=== PATIENT | female | born 1985 | race Caucasian/White ===

== ENCOUNTER 2018-03-04 15:51 | Emergency (ER) | payer OTHER ==
[~2018-03-04] VITALS: Ht 175.3 cm; Wt 74.8 kg
[~2018-03-04 15:51] MED LIST: ACET325 PO; ALBU90I; ALBU90OI INH; AMOX500 PO; AZIT250 PO; Amoxicillin875 MG PO; BENZ100A PO; Bactrim Ds Tab1 EACH PO; CEPH500 PO; CIPR500 PO; CRUTCH4 USE; CYCL10 PO; DEPO INJ; FAMO20 PO; FLUO10 PO; HYDACE25S PR; HYDACE5; HYDACE5 PO; HYDACE5325 PO; IBUP200; IBUP200 PO; IBUPROFEN 800 MG; MULVITMINE PO; Macrobid 100 M100 MG PO; Monodox100 MG PO; NAPR220; NAPR375 PO; NAPR500 PO; NAPR500ERA; NAPR550 PO; Nix Lice Treatm59 ML TOP; OXYACE5T PO; PENVK250; PENVK250 PO; PREN-16 PO; PROM25 PO; RANI150 PO; RXHYDACE PO; RXHYDGUAS PO; RXOXYACE PO; SERT100 PO; SERT50; SPACE CHAMBER1 EACH MC; TRAZ50; Ultram50 MG PO; Veetids 500500 MG PO; ZOLM2.5; Zofran Odt4 MG SL; Zofran Odt8 MG SL; [UNRECOGNIZED DRUG - REMARK]; [UNRECOGNIZED DRUG - REMARK]; [UNRECOGNIZED DRUG - REMARK] PO
[2018-03-04] MEDS ORDERED: Norco 5-325 Ta1 EACH PO (17:49)
== END 2018-03-04 18:51 | disposition home or self-care (01) ==
LOC: ER 15:51
DX: T14.8XXA Other injury of unspecified body region, initial encounter (principal); F41.8 Other specified anxiety disorders; F17.200 Nicotine dependence, unspecified, uncomplicated; Y04.2XXA Assault by strike against or bumped into by another person, initial encounter
CPT/HCPCS: 99283

== ENCOUNTER 2018-08-01 15:12 | Emergency (ER) | payer OTHER ==
[~2018-08-01] VITALS: Ht 175.3 cm; Wt 77.1 kg
[~2018-08-01 15:12] MED LIST changes: +Norco 5-325 Ta1 EACH PO
[2018-08-01] MEDS ORDERED: Norco 5-325 Ta1 EACH PO (16:32)
[2018-08-02] MEDS ORDERED: IBUP600 PO (00:08)
[2018-08-02] MEDS ORDERED: Norco 5-325 Ta1 EACH PO (00:08)
== END 2018-08-01 16:42 | disposition home or self-care (01) ==
LOC: ER 15:12
DX: M54.5 Low back pain (principal); J45.909 Unspecified asthma, uncomplicated; F32.9 Major depressive disorder, single episode, unspecified; G43.909 Migraine, unspecified, not intractable, without status migrainosus; F17.200 Nicotine dependence, unspecified, uncomplicated; Z91.041 Radiographic dye allergy status; Z88.8 Allergy status to other drugs, medicaments and biological substances; Z79.899 Other long term (current) drug therapy; W01.0XXA Fall on same level from slipping, tripping and stumbling without subsequent striking against object, initial encounter
CPT/HCPCS: 72100; 99283-25

== ENCOUNTER 2018-08-01 21:39 | Emergency (ER) | payer OTHER ==
[~2018-08-01] VITALS: Ht 175.3 cm; Wt 77.1 kg
[2018-08-02] MEDS ORDERED: IBUP600 PO (00:08)
[2018-08-02] MEDS ORDERED: Norco 5-325 Ta1 EACH PO (00:08)
[2018-08-03] MEDS ORDERED: ONDA4ODT MM (23:23)
[2018-08-03] MEDS ORDERED: Percocet 5-3251 EACH PO (23:23)
== END 2018-08-02 00:18 | disposition home or self-care (01) ==
LOC: ER 21:39
DX: S32.10XA Unspecified fracture of sacrum, initial encounter for closed fracture (principal); J45.909 Unspecified asthma, uncomplicated; F32.9 Major depressive disorder, single episode, unspecified; F17.200 Nicotine dependence, unspecified, uncomplicated; Z91.040 Latex allergy status; Z88.8 Allergy status to other drugs, medicaments and biological substances; W19.XXXA Unspecified fall, initial encounter
CPT/HCPCS: 72131; 96374; 96375; 99283-25; J1170; J1885; J2405

== ENCOUNTER 2018-08-03 20:46 | Emergency (ER) | payer OTHER ==
[~2018-08-03] VITALS: Ht 175.3 cm; Wt 72.6 kg
[~2018-08-03 20:46] MED LIST changes: +IBUP600 PO
[2018-08-03] MEDS ORDERED: ONDA4ODT MM (23:23)
[2018-08-03] MEDS ORDERED: Percocet 5-3251 EACH PO (23:23)
== END 2018-08-03 23:42 | disposition home or self-care (01) ==
LOC: ER 20:46
DX: R11.2 Nausea with vomiting, unspecified (principal); T40.2X5A Adverse effect of other opioids, initial encounter; S32.10XD Unspecified fracture of sacrum, subsequent encounter for fracture with routine healing; Z88.8 Allergy status to other drugs, medicaments and biological substances; W00.0XXD Fall on same level due to ice and snow, subsequent encounter
CPT/HCPCS: 99283

== ENCOUNTER 2018-10-31 21:58 | Emergency (ER) | payer OTHER ==
[~2018-10-31] VITALS: Ht 177.8 cm; Wt 127.0 kg
[~2018-10-31 21:58] MED LIST changes: +ONDA4ODT MM; +Percocet 5-3251 EACH PO
[2018-10-31] MEDS ORDERED: METCAR500 PO (23:36)
[2018-10-31] MEDS ORDERED: GABA100 PO (23:36)
[2018-10-31] MEDS ORDERED: IBUP600 PO (23:36)
== END 2018-11-01 00:41 | disposition home or self-care (01) ==
LOC: ER 21:58
DX: S39.012A Strain of muscle, fascia and tendon of lower back, initial encounter (principal); W18.30XA Fall on same level, unspecified, initial encounter; Z91.041 Radiographic dye allergy status; Z88.8 Allergy status to other drugs, medicaments and biological substances; Z79.899 Other long term (current) drug therapy; F32.9 Major depressive disorder, single episode, unspecified; F17.200 Nicotine dependence, unspecified, uncomplicated; J45.909 Unspecified asthma, uncomplicated
CPT/HCPCS: 96372; 99283; A9270-GY; J1885

== ENCOUNTER 2018-12-24 22:23 | Emergency (ER) | payer OTHER ==
[~2018-12-24] VITALS: Ht 177.8 cm; Wt 86.2 kg
[~2018-12-24 22:23] MED LIST changes: +GABA100 PO; +METCAR500 PO
[2018-12-24] MEDS ORDERED: NEOPOLHCSU BOTHEARS (23:20)
[2018-12-24] MEDS ORDERED: IBUP600 PO (23:20)
== END 2018-12-24 23:42 | disposition home or self-care (01) ==
LOC: ER 22:23
DX: H60.93 Unspecified otitis externa, bilateral (principal); J45.909 Unspecified asthma, uncomplicated; F32.9 Major depressive disorder, single episode, unspecified; Z88.8 Allergy status to other drugs, medicaments and biological substances; F17.210 Nicotine dependence, cigarettes, uncomplicated; Z91.048 Other nonmedicinal substance allergy status
CPT/HCPCS: 99282; A9270

== ENCOUNTER 2019-10-30 21:36 | Emergency (ER) | payer OTHER ==
[~2019-10-30] VITALS: Ht 177.8 cm; Wt 82.5 kg
[~2019-10-30 21:36] MED LIST changes: +NEOPOLHCSU BOTHEARS; +Robaxin-750750 MG PO
[2019-10-30] MEDS ORDERED: ALBU90OI (23:01)
[2019-10-30] MEDS ORDERED: Imitrex50 MG (23:01)
[2019-10-30] MEDS ORDERED: Amoxicillin875 MG (23:01)
== END 2019-10-31 | disposition home or self-care (01) ==
LOC: ER 21:36
DX: S30.0XXA Contusion of lower back and pelvis, initial encounter (principal); J45.909 Unspecified asthma, uncomplicated; F32.9 Major depressive disorder, single episode, unspecified; Z88.8 Allergy status to other drugs, medicaments and biological substances; Z91.09 Other allergy status, other than to drugs and biological substances; Z79.899 Other long term (current) drug therapy; F17.210 Nicotine dependence, cigarettes, uncomplicated; W10.9XXA Fall (on) (from) unspecified stairs and steps, initial encounter
CPT/HCPCS: 72100; 72220; 99283-25; A9270; A9270-GY

== ENCOUNTER 2019-11-21 23:08 | Emergency (ER) | payer OTHER ==
[~2019-11-21] VITALS: Ht 177.8 cm; Wt 82.5 kg
[~2019-11-21 23:08] MED LIST changes: +ALBU90OI; +Amoxicillin875 MG; +Imitrex50 MG
[2019-11-22] MEDS ORDERED: Hair, Skin & N1 EACH PO (00:16)
[2019-11-22] MEDS ORDERED: PSEU120ER PO (00:16)
[2019-11-22] MEDS ORDERED: ADVIL200 MG PO (00:17)
[2019-11-22] MEDS ORDERED: IBUP600 PO (01:17)
== END 2019-11-22 01:33 | disposition home or self-care (01) ==
LOC: ER 23:08
DX: M54.5 Low back pain (principal); F32.9 Major depressive disorder, single episode, unspecified; J45.909 Unspecified asthma, uncomplicated; F17.210 Nicotine dependence, cigarettes, uncomplicated; Z91.041 Radiographic dye allergy status; Z88.8 Allergy status to other drugs, medicaments and biological substances; Z79.899 Other long term (current) drug therapy; W19.XXXA Unspecified fall, initial encounter; Y99.0 Civilian activity done for income or pay
CPT/HCPCS: 72100; 99283-25

== ENCOUNTER 2020-09-25 10:48 | Emergency (ER) | payer OTHER ==
[~2020-09-25] VITALS: Ht 177.8 cm; Wt 75.8 kg
[~2020-09-25 10:48] MED LIST changes: +ADVIL200 MG PO; +Hair, Skin & N1 EACH PO; +PSEU120ER PO
[2020-09-25] MEDS ORDERED: Norco 5-325 Ta1 EACH PO (12:51)
== END 2020-09-25 12:59 | disposition home or self-care (01) ==
LOC: ER 10:48
DX: M25.461 Effusion, right knee (principal); F17.210 Nicotine dependence, cigarettes, uncomplicated
CPT/HCPCS: 29505; 73564; 76882; 99284-25; A9270

== ENCOUNTER 2020-10-01 11:22 | Emergency (ER) | payer OTHER ==
[~2020-10-01] VITALS: Ht 175.3 cm; Wt 74.8 kg
== END 2020-10-01 12:35 | disposition home or self-care (01) ==
LOC: ER 11:22
DX: M25.561 Pain in right knee (principal); G89.29 Other chronic pain; F17.210 Nicotine dependence, cigarettes, uncomplicated
CPT/HCPCS: 99281

== ENCOUNTER → 2020-11-29 | Outpatient (CLI) | payer OTHER ==
[2020-11-30 18:06] LABS: HPV 16 Positive (Negative); HPV 18 Negative (Negative); HPV OTHER HR TYPES Negative (Negative)
== END | disposition home or self-care (01) ==
LOC: LAB 10:31 → LAB SHORT 10:31
PROVIDERS: Obstetrics & Gynecology
DX: Z01.419 Encounter for gynecological examination (general) (routine) without abnormal findings (principal)
CPT/HCPCS: 87624; G0123

== ENCOUNTER → 2021-04-25 | Outpatient (CLI) | payer OTHER | LOC: LAB SHORT 13:44 → LAB 13:44 | DX: D06.9 Carcinoma in situ of cervix, unspecified (principal); Z91.041 Radiographic dye allergy status; Z88.8 Allergy status to other drugs, medicaments and biological substances | CPT/HCPCS: 88305 ==

== ENCOUNTER → 2021-05-29 | Outpatient (CLI) | payer OTHER | LOC: LAB 13:35 → LAB SHORT 13:35 | DX: D06.9 Carcinoma in situ of cervix, unspecified (principal); D26.0 Other benign neoplasm of cervix uteri; Z91.041 Radiographic dye allergy status; Z88.8 Allergy status to other drugs, medicaments and biological substances | CPT/HCPCS: 88305; 88342 ==

== ENCOUNTER 2022-06-17 23:59 | Emergency (ER) | payer OTHER, BC ==
[~2022-06-17] VITALS: Ht 177.8 cm; Wt 81.7 kg
== END 2022-06-18 05:56 | disposition home or self-care (01) ==
LOC: ER 23:59
DX: M25.511 Pain in right shoulder (principal); M25.551 Pain in right hip; F17.210 Nicotine dependence, cigarettes, uncomplicated; W01.0XXA Fall on same level from slipping, tripping and stumbling without subsequent striking against object, initial encounter; Z91.041 Radiographic dye allergy status; Z88.8 Allergy status to other drugs, medicaments and biological substances; Z79.899 Other long term (current) drug therapy
CPT/HCPCS: 73030; 73502; A9270; J1885

== ENCOUNTER → 2022-07-08 | Outpatient (CLI) | payer BC, OTHER | END | disposition home or self-care (01) | LOC: LAB SHORT 16:45 | DX: N30.01 Acute cystitis with hematuria (principal) | CPT/HCPCS: 87077; 87086; 87186 ==

== ENCOUNTER → 2022-11-25 | Outpatient (CLI) | payer BC, OTHER | END | disposition home or self-care (01) | LOC: LAB 16:10 → LAB SHORT 16:10 | DX: R30.0 Dysuria (principal) | CPT/HCPCS: 87077; 87086; 87186 ==

== ENCOUNTER → 2022-12-17 | Outpatient (CLI) | payer BC, OTHER | END | disposition home or self-care (01) | LOC: LAB SHORT 16:30 → LAB 16:30 | DX: R30.0 Dysuria (principal) | CPT/HCPCS: 87077; 87086; 87186 ==